=== PATIENT | female | born 1995 | race Caucasian/White ===

== ENCOUNTER 2017-02-17 18:26 | Emergency (ER) | payer OTHER ==
[2017-02-17 18:41] VITALS: RESP 16
[2017-02-17] MEDS ORDERED: ONDANSETRON DISINTEGRATING 4 MG TAB PO ONE (18:45)
[2017-02-17] MEDS ORDERED: ONDANSETRON 4 MG/2 ML VIAL IVP ONE (19:01)
[2017-02-17] MEDS ORDERED: NS 1,000 ML IV ONE (19:01)
--- NOTE | 2017-02-17 19:04 | EDPHY ---
H & P Time Seen by Provider: 02/17/17 18:49 HPI/ROS: CHIEF COMPLAINT: Nausea vomiting diarrhea HISTORY OF PRESENT ILLNESS: This is a 21-year-old female presenting to the emergency department complaining of nausea vomiting diarrhea onset around 2200, patient states not sure if it is viral or food poisoning. States she was feeling fine yesterday she does work at a restaurant so unknown if she may have picked up something there. She has been able to intermittently tolerate ice chips but none since this afternoon, also reports intermittent fevers chills REVIEW OF SYSTEMS: Constitutional: Intermittent fever chills Eyes: No discharge. ENT: No sore throat. Cardiovascular: No chest pain, no palpitations. Respiratory: No cough, no shortness of breath. Gastrointestinal: No abdominal pain, nausea vomiting diarrhea Genitourinary: No hematuria Musculoskeletal: No back pain. Skin: No rashes. Neurological: No headache. Smoking Status: Never smoked Physical Exam: General Appearance: Alert, no distress. Eyes: Pupils equal and round no pallor or injection. ENT, Mouth: Mucous membranes dry Respiratory: There are no retractions, lungs are clear to auscultation. Cardiovascular: Regular rate and rhythm. Gastrointestinal: Abdomen is soft and nontender, no masses, bowel sounds normal. Neurological: No focal deficits. Answering questions appropriately Skin: Warm and dry, no rashes. Musculoskeletal: Neck is supple nontender. Extremities: symmetrical, full range of motion. Psychiatric: Patient is oriented X 3, there is no agitation. Patient acting appropriate Constitutional: Initial Vital Signs Temperature (C) 37.1 C 02/17/17 18:39 Heart Rate 108 H 02/17/17 18:39 Respiratory Rate 16 02/17/17 18:39 Blood Pressure 100/68 02/17/17 18:39 O2 Sat (%) 98 02/17/17 18:39 O2 Delivery Mode Room Air Allergies/Adverse Reactions: No Known Allergies Allergy (Unverified 07/25/14 11:41) Home Medications: Medication Instructions Recorded Gianvi 3 mg-0.02 mg Tablet 07/25/14 Medical Decision Making ED Course/Re-evaluation: Discussed ED plan of care: CBC, BMP, UA, HCG, IV fluids for dehydration 2100: Patient re-evaluation---> stable, no nausea no vomiting tolerating PO challenge. Patient states ready go home. Discharge home, discussed all discharge instructions with patient Differential Diagnosis: Other differential diagnosis considered but not limited to UTI, pyelonephritis, and gastroenteritis - Data Points Laboratory Results: Laboratory Results 02/17/17 18:57 02/17/17 18:57 02/17/17 02/17/17 02/17/17 19:49 18:57 18:57 WBC RBC Hgb Hct MCV MCH MCHC RDW Plt Count MPV Neut % (Auto) Lymph % (Auto) [place] % (Auto) Eos % (Auto) Baso % (Auto) Nucleat RBC Rel Count Absolute Neuts (auto) Absolute Lymphs (auto) Absolute Monos (auto) Absolute Eos (auto) Absolute Basos (auto) Absolute Nucleated RBC Immature Gran % Immature Gran # Sodium 135 mEq/L mEq/L (134-144) Potassium 3.7 mEq/L mEq/L (3.5-5.2) Chloride 104 mEq/L mEq/L (97-110) Carbon Dioxide 20 mEq/l L mEq/l (22-31) Anion Gap 11 mEq/L mEq/L (8-16) BUN 9 mg/dL mg/dL (7-23) Creatinine 0.7 mg/dL mg/dL (0.6-1.0) Estimated GFR > 60 Glucose 87 mg/dL mg/dL (70-100) Calcium 9.4 mg/dL mg/dL (8.5-10.4) Beta HCG, Qual NEGATIVE Urine Color YELLOW Urine Appearance HAZY Urine pH 5.0 (5.0-7.5) Ur Specific [place] 1.025 (1.002-1.030) Urine Protein NEGATIVE (NEGATIVE) Urine Ketones 1+ H (NEGATIVE) Urine Blood NEGATIVE (NEGATIVE) Urine Nitrate NEGATIVE (NEGATIVE) Urine Bilirubin NEGATIVE (NEGATIVE) Urine Urobilinogen NEGATIVE EU EU (0.2-1.0) Ur Leukocyte Esterase NEGATIVE (NEGATIVE) Urine Glucose NEGATIVE (NEGATIVE) 02/17/17 18:57 WBC 8.71 10^3/uL 10^3/uL (3.80-9.50) RBC 4.21 10^6/uL 10^6/uL (4.18-5.33) Hgb 13.9 g/dL g/dL (12.6-16.3) Hct 40.8 % % (38.0-47.0) MCV 96.9 fL fL (81.5-99.8) MCH 33.0 pg pg (27.9-34.1) MCHC 34.1 g/dL g/dL (32.4-36.7) RDW 12.2 % % (11.5-15.2) Plt Count 192 10^3/uL 10^3/uL (150-400) MPV 9.5 fL fL (8.7-11.7) Neut % (Auto) 81.0 % H % (39.3-74.2) Lymph % (Auto) 10.4 % L % (15.0-45.0) [place] % (Auto) 7.5 % % (4.5-13.0) Eos % (Auto) 0.1 % L % (0.6-7.6) Baso % (Auto) 0.5 % % (0.3-1.7) Nucleat RBC Rel Count 0.0 % % (0.0-0.2) Absolute Neuts (auto) 7.06 10^3/uL H 10^3/uL (1.70-6.50) Absolute Lymphs (auto) 0.91 10^3/uL L 10^3/uL (1.00-3.00) Absolute Monos (auto) 0.65 10^3/uL 10^3/uL (0.30-0.80) Absolute Eos (auto) 0.01 10^3/uL L 10^3/uL (0.03-0.40) Absolute Basos (auto) 0.04 10^3/uL 10^3/uL (0.02-0.10) Absolute Nucleated RBC 0.00 10^3/uL 10^3/uL (0-0.01) Immature Gran % 0.5 % % (0.0-1.1) Immature Gran # 0.04 10^3/uL 10^3/uL (0.00-0.10) Sodium Potassium Chloride Carbon Dioxide Anion Gap BUN Creatinine Estimated GFR Glucose Calcium Beta HCG, Qual Urine Color Urine Appearance Urine pH Ur Specific [place] Urine Protein Urine Ketones Urine Blood Urine Nitrate Urine Bilirubin Urine Urobilinogen Ur Leukocyte Esterase Urine Glucose Medications Given: Discontinued Medications Sodium Chloride (Ns) 1,000 mls @ 0 mls/hr IV ONCE ONE PRN Reason: Wide Open Stop: 02/17/17 19:02 Last Admin: 02/17/17 18:57 Dose: 1,000 mls Ibuprofen (Motrin Oral Solution) 600 mg PO EDNOW ONE Stop: 02/17/17 20:14 Last Admin: 02/17/17 20:12 Dose: 600 mg Ondansetron HCl (Zofran Odt) 4 mg PO EDNOW ONE Stop: 02/17/17 18:46 Last Admin: 02/17/17 18:50 Dose: 4 mg Ondansetron HCl (Zofran) 4 mg IVP EDNOW ONE Stop: 02/17/17 19:02 Last Admin: 02/17/17 19:30 Dose: 4 mg Ondansetron HCl (Zofran Odt 4 Mg Prepack#2) 1 btl TAKEHOME EDNOW ONE Stop: 02/17/17 21:02 Last Admin: 02/17/17 21:07 Dose: 1 btl Departure - Departure Disposition: Home, Routine, Self-Care Clinical Impression: Gastroenteritis Condition: Good Instructions: Gastroenteritis (ED) Additional Instructions: 1 increase fluid intake, bland diet for the next 12-24 hours 2. Handwashing to prevent spread of any germs of viruses, no sharing of any a kitchen utensils water bottles glasses Referrals: NONE *PRIMARY CARE P,. [Primary Care Provider] - As per Instructions [facility],. [Clinic] - As per Instructions
[2017-02-17 19:08] LABS: % IMMATURE GRANULYOCYTES 0.5 % (0.0-1.1); ABSOLUTE IMMATURE GRANULOCYTES 0.04 10^3/uL (0.00-0.10); ADD DIFF? NO; ADD MORPH? NO; ADD SCAN? NO; ATYPICAL LYMPHOCYTE FLAG 0 (0-99); FRAGMENT RBC FLAG 20 (0-99); HEMATOCRIT 40.8 % (38.0-47.0); HEMOGLOBIN 13.9 g/dL (12.6-16.3); LEFT SHIFT FLG 10 (0-99); LIPEMIA HEMOLYSIS FLAG 90 (0-99); MEAN CELL HEMOGLOBIN CONCENTR. 34.1 g/dL (32.4-36.7); MEAN CELL VOLUME 96.9 fL (81.5-99.8); MEAN PLATELET VOLUME 9.5 fL (8.7-11.7); PLATELET CLUMPS FLAG 0 (0-99); PLATELET COUNT 192 10^3/uL (150-400); RED BLOOD CELL COUNT 4.21 10^6/uL (4.18-5.33); RED CELL DISTRIBUTION WIDTH 12.2 % (11.5-15.2)
[2017-02-17 19:35] LABS: ANION GAP 11 mEq/L (8-16); CALCIUM 9.4 mg/dL (8.5-10.4); CARBON DIOXIDE 20 mEq/l (22-31); CHLORIDE 104 mEq/L (97-110); CREATININE 0.7 mg/dL (0.6-1.0); GLOMERULAR FILTRATION RATE > 60; GLUCOSE 87 mg/dL (70-100); POTASSIUM 3.7 mEq/L (3.5-5.2); SODIUM 135 mEq/L (134-144)
[2017-02-17] MEDS ORDERED: IBUPROFEN SUSP 100 MG/5 ML UDCUP ONE (20:07)
[2017-02-17] MEDS ORDERED: IBUPROFEN SUSP 100 MG/5 ML UDCUP PO ONE (20:13)
[2017-02-17 20:29] LABS: COLOR YELLOW; LEUKOCYTE ESTERASE,URINE NEGATIVE (NEGATIVE); NITRITE,URINE NEGATIVE (NEGATIVE)
[2017-02-17] MEDS ORDERED: ONDANSETRON 4MG PREPACK#2 BTL TAKEHOME ONE (21:01)
[2017-02-17 21:38] VITALS: BP 103/65; PULSE 82; TEMP 99.7; O2SAT 96
== END 2017-02-17 21:37 | disposition home or self-care (01) ==
DX: K52.9 Noninfective gastroenteritis and colitis, unspecified (principal)
CPT/HCPCS: 96374; J2405

== ENCOUNTER 2018-12-24 05:41 | Emergency (ER) | payer OTHER ==
--- NOTE | 2018-12-24 05:46 | EDPHY ---
H & P Stated Complaint: finished macrobid for UTI, was getting better now worsening abd pain Time Seen by Provider: 12/24/18 05:46 HPI/ROS: HPI CHIEF COMPLAINT: I think I have a urinary tract infection. HISTORY OF PRESENT ILLNESS: This patient is a 23-year-old female she is otherwise healthy she denies any significant medical or surgical history, presents emergency room with urinary frequency, dysuria, and suprapubic discomfort. She denies any right lower quadrant abdominal pain, denies fever, denies vomiting, she states that she was recently diagnosed with a urinary tract infection last week at urgent care and started on Macrobid. She completed a course of Macrobid 2-3 days ago and now has urinary frequency dysuria and bladder pain again. Past Medical History: Denies medical history Past Surgical History: Denies surgical history Social History: Denies daily use of drugs alcohol tobacco. Family History: Noncontributory ROS REVIEW OF SYSTEMS: 10 Systems were reviewed and negative with the exception of the elements mentioned in the history of present illness. Exam Constitutional triage nursing summary reviewed, vital signs reviewed, awake/ alert. Eyes normal conjunctivae and sclera, EOMI, PERRLA. HENT normal inspection, atraumatic, moist mucus membranes, no epistaxis, neck supple/ no meningismus, no raccoon eyes. Respiratory clear to auscultation bilaterally, normal breath sounds, no respiratory distress, no wheezing. Cardiovascular rate normal, regular rhythm, no murmur, no edema, distal pulses normal. Gastrointestinal mild tender palpation suprapubic, no peritoneal signs, no rebound, no guarding, normal bowel sounds, no distension, no pulsatile mass. Genitourinary no CVA tenderness. Musculoskeletal no midline vertebral tenderness, full range of motion, no calf swelling, no tenderness of extremities, no meningismus, good pulses, neurovascularly intact. Skin pink, warm, & dry, no rash, skin atraumatic. Neurologic awake, alert and oriented x 3, AAOx3, moves all 4 extremities equally, motor intact, sensory intact, CN II-XII intact, normal cerebellar, normal vision, normal speech. Psychiatric normal mood/affect. Heme/Lymph/Immune no lymphadenopathy. Differential Diagnosis: Includes but is not limited to in a particular order UTI, cystitis, pyelonephritis, ectopic , Medical Decision Making: Plan for this patient check UA, check urine and re-evaluate. Re-evaluation: Urinalysis reviewed shows urinary tract infection. Negative test. Plan for Keflex and pyridium. I encouraged patient drink lots of fluids stay well-hydrated. Antibiotics as prescribed We also discussed return precautions she understands return to the emergency room she develops worsening abdominal pain, fever, back pain, vomiting, not doing 1st dose given in the emergency room Here in emergency room she does not have any significant abdominal pain on exam , no back pain or flank pain, no fever, does not appear toxic. Source: Patient - Personal History Current Tetanus/Diphtheria Vaccine: Yes Current Tetanus Diphtheria and Acellular Pertussis (TDAP): Yes - Medical/Surgical History Hx Asthma: No Hx Chronic Respiratory Disease: No Hx Diabetes: No Hx Cardiac Disease: No Hx Renal Disease: No Hx Cirrhosis: No Hx Alcoholism: No Hx HIV/AIDS: No Hx Splenectomy or Spleen Trauma: No Other PMH: denies - Social History Smoking Status: Never smoked Constitutional: Initial Vital Signs Temperature (C) 36.9 C 12/24/18 05:43 Heart Rate 100 12/24/18 05:43 Respiratory Rate 18 12/24/18 05:43 Blood Pressure 121/85 H 12/24/18 05:43 O2 Sat (%) 96 12/24/18 05:43 O2 Delivery Mode Room Air Allergies/Adverse Reactions: No Known Allergies Allergy (Unverified 07/25/14 11:41) Home Medications: Medication Instructions Recorded Cephalexin [Keflex] 500 mg PO Q6H #28 cap 12/24/18 Phenazopyridine HCl [Pyridium] 200 mg PO TID #15 tab 12/24/18 Medical Decision Making - Data Points Laboratory Results: 12/24/18 12/24/18 06:00 06:00 Urine Color YELLOW Urine Appearance MODERATELY TURBID Urine pH 6.0 (5.0-7.5) Ur Specific [place] 1.013 (1.002-1.030) Urine Protein 2+ H (NEGATIVE) Urine Ketones NEGATIVE (NEGATIVE) Urine Blood 3+ H (NEGATIVE) Urine Nitrate NEGATIVE (NEGATIVE) Urine Bilirubin NEGATIVE (NEGATIVE) Urine Urobilinogen 2.0 EU H EU (0.2-1.0) Ur Leukocyte Esterase 3+ H (NEGATIVE) Urine RBC 50-182 /hpf H /hpf (0-3) Urine WBC 50-182 /hpf H /hpf (0-3) Ur Epithelial Cells NONE SEEN /lpf /lpf (NONE-1+) Urine Glucose NEGATIVE (NEGATIVE) Urine Test NEGATIVE Medications Given: Discontinued Medications Ibuprofen (Motrin) 600 mg PO EDNOW ONE Stop: 12/24/18 06:19 Last Admin: 12/24/18 06:19 Dose: 600 mg Phenazopyridine HCl (Pyridium) 200 mg PO EDNOW ONE Stop: 12/24/18 06:20 Last Admin: 12/24/18 06:19 Dose: 200 mg Departure - Departure Disposition: Home, Routine, Self-Care Clinical Impression: UTI (urinary tract infection) Condition: Good Instructions: Urinary Tract Infection in Women (ED) Additional Instructions: 1. Make sure to drink lots of fluids stay well-hydrated 2. Antibiotics as prescribed 3. Return to the emergency room if develops worsening abdominal pain, fever, vomiting, not doing well Referrals: NONE *PRIMARY CARE P,. [Primary Care Provider] - As per Instructions [facility] [[facility]] - As per Instructions Prescriptions: Cephalexin [Keflex] 500 mg PO Q6H #28 cap Phenazopyridine HCl [Pyridium] 200 mg PO TID #15 tab
[2018-12-24] MEDS ORDERED: PHENAZOPYRIDINE HCL 200 MG TAB ONE (06:16)
[2018-12-24] MEDS ORDERED: IBUPROFEN 600 MG TAB PO ONE ×2 (06:16→06:18)
[2018-12-24] MEDS ORDERED: PHENAZOPYRIDINE HCL 200 MG TAB PO ONE (06:19)
[2018-12-24] MEDS ORDERED: CEPHALEXIN 500 MG CAP PO ONE (07:10)
[2018-12-24] MEDS ORDERED: CEPHALEXIN 500MG PREPACK#4 BTL TAKEHOME ONE (07:10)
[2018-12-24 07:25] VITALS: BP 94/66
== END 2018-12-24 07:34 | disposition home or self-care (01) ==
DX: N39.0 Urinary tract infection, site not specified (principal)

== ENCOUNTER 2019-02-05 13:00 | Emergency (ER) | payer OTHER | END 2019-02-05 15:21 | disposition home or self-care (01) ==